=== PATIENT | male | born 1980 | race Caucasian/White ===

== ENCOUNTER 2017-08-28 13:36 | Emergency (ER) | payer MEDICAID ==
[~2017-08-28] VITALS: Ht 162.6 cm; Wt 67.6 kg
[2017-08-28 13:44] VITALS: BP 152/96
== END 2017-08-28 16:04 | disposition left against medical advice (07) ==
LOC: ER 13:36
DX: R10.84 Generalized abdominal pain (principal); R11.0 Nausea; Z53.21 Procedure and treatment not carried out due to patient leaving prior to being seen by health care provider